=== PATIENT | female | born 1955 | race Caucasian/White ===

== ENCOUNTER 2018-08-28 16:38 | Emergency (ER) | payer OTHER ==
[~2018-08-28] VITALS: Ht 160 cm; Wt 81.0 kg
[2018-08-28] MEDS ORDERED: TORADOL PO (17:43)
[2018-08-28 17:59] VITALS: BP 117/63
== END 2018-08-28 17:59 | disposition home or self-care (01) | DRG 563 ==
LOC: ED 16:38
DX: S93.401A Sprain of unspecified ligament of right ankle, initial encounter (principal); W17.2XXA Fall into hole, initial encounter; X50.1XXA Overexertion from prolonged static or awkward postures, initial encounter; Y93.01 Activity, walking, marching and hiking; Y92.414 Local residential or business street as the place of occurrence of the external cause